=== PATIENT | female | born 1995 | race Two or more races ===

== ENCOUNTER 2021-07-02 16:38 | Emergency (ER) | payer BC ==
[2021-07-02] MEDS ORDERED: NAPROXEN500 MG PO (18:53)
== END 2021-07-02 19:15 | disposition home or self-care (01) ==
LOC: ER1 16:38
DX: S42.401A Unspecified fracture of lower end of right humerus, initial encounter for closed fracture (principal); Z90.89 Acquired absence of other organs; V86.59XA Driver of other special all-terrain or other off-road motor vehicle injured in nontraffic accident, initial encounter; Y92.410 Unspecified street and highway as the place of occurrence of the external cause
CPT/HCPCS: 29105; 73060; 73070; 73090; 99283